=== PATIENT | male | born 1965 | race Caucasian/White ===

== ENCOUNTER 2019-09-04 08:45 | Emergency (ER) | payer BC ==
[~2019-09-04] VITALS: Ht 182.9 cm; Wt 147.4 kg
[2019-09-04 08:51] VITALS: BP_SYST 146
--- NOTE | 2019-09-04 09:02 | NUR ---
RECEIVED AND IN ROOM 4. CALM, ALERT,NAD. CLYDE TO ASSUME CARE
[2019-09-04] MEDS ORDERED: DIPHENOXYLATE HCL/ATROP SULF 2.5 MG TAB PO ONE (09:15)
[2019-09-04] MEDS ORDERED: NACL 0.9% 1,000 ML IV ONE (09:15)
--- NOTE | 2019-09-04 09:21 | NUR ---
DR FLAHERTY IN TO ASSESS
[2019-09-04 09:45] LABS: BASOPHILS % (AUTO) 0.1 % (0.0-2.0); EOSINOPHILS # (AUTO) 0.2 K/uL (0.0-0.4); EOSINOPHILS % (AUTO) 2.3 % (0.0-4.0); HEMATOCRIT 44.6 % (36-54); HEMOGLOBIN 14.7 g/dL (14.0-18.0); LYMPHOCYTES % (AUTO) 12.7 % (20.5-51.5); MEAN CORPUSCULAR HEMOGLOBIN 28 pg (27-31); MEAN CORPUSCULAR HGB CONC 33 % (32-36); MEAN CORPUSCULAR VOLUME 84 fL (79.0-98.0); MONOCYTES # (AUTO) 0.7 K/uL (0.0-1.0); MONOCYTES % (AUTO) 9.4 % (1.7-9.3); NEUTROPHILS % (AUTO) 75.5 % (40.0-70.0); PLATELET COUNT (AUTO) 281 K/uL (130-430); RED BLOOD CELL COUNT(AUTO) 5.29 MIL/uL (4.2-6.2); RED CELL DISTRIBUTION WIDTH 14.8 % (9.0-15.0); WHITE BLOOD COUNT (AUTO) 7.9 K/uL (4.8-10.8)
[2019-09-04 10:00] LABS: CALCIUM 9.7 mg/dL (8.4-11.0); CREATININE 1.07 mg/dL (0.55-1.30); POTASSIUM 3.7 mmol/L (3.5-5.1)
--- NOTE | 2019-09-04 10:30 | NUR ---
PT CALM, ALERT, RESP UNLABORED, SKIN WARM AND DRY. DENIES PAIN. IV HYDRATION. DR FLAHERTY IN TO ASSESS. NO COMPLAINTS
--- NOTE | 2019-09-04 10:50 | NUR ---
Patient given written and verbal discharge instructions and verbalizes understanding. ER MD discussed with patient the results and treatment provided. Patient in stable condition. ID arm band removed. IV catheter removed intact and dressing applied, no active bleeding. Rx of given. Patient educated on pain management and to follow up with PMD. Pain Scale . Opportunity for questions provided and answered. Medication side effect fact sheet provided.
[2019-09-04 11:01] VITALS: BP_SYST 110
== END 2019-09-04 10:50 | disposition home or self-care (01) ==
LOC: SED 08:45
DX: A08.4 Viral intestinal infection, unspecified (principal); Z20.828 Contact with and (suspected) exposure to other viral communicable diseases
CPT/HCPCS: 80053; 83690; 85025; 96360; 99283; C9803; J7030; U0003